=== PATIENT | male | born 1940 | race Caucasian/White ===

== ENCOUNTER 2018-10-09 14:45 | Outpatient (CLI) | payer MEDICARE, BC ==
[~2018-10-09 14:45] MED LIST: Gadobenate Dimeglumine 529 MG/1 ML (20ML VIAL) ONE
--- NOTE | 2018-10-09 16:15 | RAD ---
TWO VIEWS RIGHT FOREARM: HISTORY: Assess metal in right forearm. FINDINGS: AP and lateral views right forearm demonstrate a tiny fragment of metal in the anterior aspect of the soft tissues of the right forearm. I suspect it is safe with the patient being awake to have an MRI if the patient has normal mentation. This metallic tiny fragment does not form a ring or any struct ure which may result in current subsequent significant heating. The rest of the right forearm is unr emarkable. IMPRESSION: Tiny fragment of metallic density in the soft tissues right forearm. POS: MARITZA
--- NOTE | 2018-10-09 19:31 | MRI ---
MRI BRAIN AND INTERNAL AUDITORY CANALS WITH AND WITHOUT CONTRAST: 10/09/18 HISTORY: 77-year-old male with sensorineural hearing loss, asymmetrical sudden left sided. TECHNIQUE: Multiple sequences obtained in axial, sagittal, and coronal planes; both whole brain images and thin slices through the IAC's, pre and post IV injection of gadolinium-based contrast agent: 14 mL of Mult ihance. FINDINGS: The ventricles are normal in size and configuration. There is no restricted diffusion, abnormal intr aaxial enhancement, mass, midline shift or any other mass effect, recent intraaxial hemorrhage, or ex traaxial fluid collection. There is a moderate degree of T2-hyperintensities in the cerebral white ma tter consistent with chronic ischemic white matter changes due to microvascular atherosclerosis. There is no abnormal enhancement, mass, or morphologic abnormality, involving the cerebellopontine an gles, 7th-8th nerve complexes, internal auditory canals, cochleae, vestibules, vestibular aqueducts, or semicircular canals. There is a small old infarction approximately 1 x 0.3 cm at the posterolateral aspect of the right ce rebellar hemisphere. There is a tiny old lacunar infarction in the right basal ganglia. There is a ti ny old lacunar infarction in the left paramedian posterior aspect of the trisha. There are bilateral ma stoid effusions. IMPRESSION: 1. Moderate chronic ischemic white matter changes. 2. 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 3. No pathology of inner ear structures identified. latesha[] POS: SANKET
== END 2018-10-09 14:46 | disposition home or self-care (01) ==
LOC: SCSMRI 14:45
PROVIDERS: ATTEND Otolaryngology
DX: H90.3 Sensorineural hearing loss, bilateral (principal); S50.851A Superficial foreign body of right forearm, initial encounter; Z86.73 Personal history of transient ischemic attack (TIA), and cerebral infarction without residual deficits
CPT/HCPCS: 70553; 82565; A9579